=== PATIENT | male | born 1980 | race Caucasian/White ===

== ENCOUNTER 2016-12-08 21:09 | Emergency (ER) | payer OTHER | END 2016-12-09 02:20 | disposition left against medical advice (07) | LOC: ER1 21:09 | DX: Z53.21 Procedure and treatment not carried out due to patient leaving prior to being seen by health care provider (principal) ==

== ENCOUNTER → 2021-02-19 | Outpatient (CLI) | payer SELFPAY ==
[~2021-02-19] MED LIST: NITROGLYCERIN0.4 MG SL
== END ==
LOC: KOH-I 13:11
DX: M79.672 Pain in left foot (principal)
CPT/HCPCS: 73630

== ENCOUNTER 2021-03-12 09:24 | Emergency (ER) | payer SELFPAY ==
[2021-03-12 10:17] LABS: HEMOGLOBIN 18.4 gm/dl (14.0-17.5); RED BLOOD COUNT 6.39 M/UL (4.20-5.50); WHITE BLOOD COUNT 5.8 K/UL (4.5-11.0)
== END 2021-03-12 10:45 | disposition home or self-care (01) ==
LOC: ER1 09:24
PROVIDERS: Emergency Medicine
DX: R07.2 Precordial pain (principal)
CPT/HCPCS: 71045; 80053; 82550; 82553; 83874; 84484; 85025; 93005; 99285

== ENCOUNTER → 2021-04-10 | Outpatient (CLI) | payer OTHER | LOC: KOH-I 15:21 | DX: S92.322D Displaced fracture of second metatarsal bone, left foot, subsequent encounter for fracture with routine healing (principal) | CPT/HCPCS: 73630 ==

== ENCOUNTER 2021-09-28 17:32 | Emergency (ER) | payer OTHER ==
[2021-09-28] MEDS ORDERED: NORFLEX 100 MG100 MG PO (18:59)
[2021-09-28] MEDS ORDERED: IBUPROFEN600 MG PO (18:59)
== END 2021-09-28 19:19 | disposition home or self-care (01) ==
LOC: ER1 17:32
DX: S50.812A Abrasion of left forearm, initial encounter (principal); S40.812A Abrasion of left upper arm, initial encounter; I10 Essential (primary) hypertension; Z88.0 Allergy status to penicillin; V43.52XA Car driver injured in collision with other type car in traffic accident, initial encounter; W22.11XA Striking against or struck by driver side automobile airbag, initial encounter; Y92.410 Unspecified street and highway as the place of occurrence of the external cause
CPT/HCPCS: 99283